=== PATIENT | male | born 1975 | race African-American/Black ===

== ENCOUNTER 2017-11-25 18:18 | Emergency (ER) | payer BC, OTHER ==
[2017-11-25 18:24] VITALS: BP 115/51; PULSE 67; TEMP 98.1; BMI 35.9
--- NOTE | 2017-11-25 18:39 | PDOC ---
History of Present Illness - General History Source: Patient Exam Limitations: No Limitations - History of Present Illness Initial Comments: 11/25/17 18:48 The patient is a 42 year old male with no significant PMH who presents to the emergency department with left third finger pain for 1 day. The patient reports that he started experiencing his left third finger pain last night after playing basketball last night. The patient reports that he vaguely remember jamming it. The patient reports that his left third finger pain noticeably worsened today compared to yesterday. The patient denies any numbness, tingling or weakness. He denies any other injury to his left third finger. He denies any chest pain, shortness of breath, headache and dizziness. He denies fever, chills , nausea, vomit, diarrhea and constipation. He denies any urinary symptoms . the patient denies any other complaints. <Nicholas Marie - Last Filed: 11/25/17 18:48> - History of Present Illness Initial Comments: Physical exam: Alert oriented no acute distress cooperative Afebrile vital signs normal Physical exam confined to the left hand. There is a deformity of the distal phalanx of the index finger, but the patient states that this is an old injury and was not aggravated by any recent trauma. He indicates pain over the third MCP J. There is no deformity, swelling, erythema, warmth, or other sign of injury to this joint. There is full range of motion. There is full flexion and extension of the PIP and DIP joints. Capillary refill intact. No sensory deficits. Impression: Minor sprain Plan: X-ray is negative. Splint ice rest and Motrin. Follow-up hand specialist if pain persists. Fully ambulatory and in no significant distress at discharge to follow-up as directed <Jose Juan Agarwal - Last Filed: 11/28/17 07:33> - General Chief Complaint: Pain, Acute Stated Complaint: left 3rd finger pain Time Seen by Provider: 11/25/17 18:19 Past History <Nicholas Marie - Last Filed: 11/25/17 18:48> - Past Medical History COPD: No DVT: No Other medical history: denies - Immunization History Td Vaccination: Yes (<5yrs ago) - Suicide/Smoking/Psychosocial Hx Smoking Status: No Smoking History: Current some day smoker Have you smoked in the past 12 months: Yes Number of Cigarettes Smoked Daily: 0 Information on smoking cessation initiated: Yes 'Breaking Loose' booklet given: 11/25/17 Hx Alcohol Use: Yes Drug/Substance Use Hx: No Substance Use Type: Alcohol <Jose Juan Agarwal - Last Filed: 11/28/17 07:33> - Past Medical History Allergies/Adverse Reactions: Allergies Allergy/AdvReac Type Severity Reaction Status Date / Time No Known Allergies Allergy Verified 11/25/17 18:19 Home Medications: Ambulatory Orders NK [No Known Home Medication] 11/25/17 Review of Systems - Review of Systems Able to Perform ROS?: Yes Comments:: 11/25/17 18:49 CONSTITUTIONAL: Absent: fever, chills, diaphoresis, generalized weakness, malaise, loss of appetite HEENT: Absent: rhinorrhea, nasal congestion, throat pain, throat swelling, difficulty swallowing, mouth swelling, ear pain, eye pain, visual Changes CARDIOVASCULAR: Absent: chest pain, syncope, palpitations, irregular heart rate, lightheadedness , peripheral edema RESPIRATORY: Absent: cough, shortness of breath, dyspnea with exertion, orthopnea, wheezing, stridor, hemoptysis GASTROINTESTINAL: Absent: abdominal pain, abdominal distension, nausea, vomiting, diarrhea, constipation, melena, hematochezia GENITOURINARY: Absent: dysuria, frequency, urgency, hesitancy, hematuria, flank pain, genital pain MUSCULOSKELETAL: (+)right third finger pain Absent: myalgia, arthralgia. SKIN: Absent: rash, itching, pallor HEMATOLOGIC/IMMUNOLOGIC: Absent: easy bleeding, easy bruising, lymphadenopathy, frequent infections ENDOCRINE: Absent: unexplained weight gain, unexplained weight loss, heat intolerance, cold intolerance NEUROLOGIC: Absent: headache, focal weakness or paresthesias, dizziness, unsteady gait, seizure, mental status changes, bladder or bowel incontinence PSYCHIATRIC: Absent: anxiety, depression, suicidal or homicidal ideation, hallucinations. <Nicholas Marie - Last Filed: 11/25/17 18:48> *Physical Exam - Vital Signs Last Vital Signs Temp Pulse Resp BP Pulse Ox 98.1 F 67 18 115/51 98 11/25/17 18:18 11/25/17 18:18 11/25/17 18:18 11/25/17 18:18 11/25/17 18:18 <Nicholas Marie - Last Filed: 11/25/17 18:48> - Vital Signs Last Vital Signs Temp Pulse Resp BP Pulse Ox 98.1 F 67 18 115/51 98 11/25/17 18:18 11/25/17 18:18 11/25/17 18:18 11/25/17 18:18 11/25/17 18:18 <Jose Juan Agarwal - Last Filed: 11/28/17 07:33> *DC/Admit/Observation/Transfer - Attestations Scribe Attestion: 11/25/17 18:49 Documentation prepared by Nicholas Marie, acting as medical insurance claims processor for Jose Juan Simpson MD. <Nicholas Marie - Last Filed: 11/25/17 18:48> - Discharge Dispostion Decision to Admit order: No <Jose Juan Agarwal - Last Filed: 11/28/17 07:33> Diagnosis at time of Disposition: Sprain, finger Qualifiers: Encounter type: initial encounter Finger: middle finger Sprain of finger site: metacarpophalangeal joint Laterality: left Qualified Code(s): S63.653A - Sprain of metacarpophalangeal joint of left middle finger, initial encounter - Discharge Dispostion Disposition: HOME Condition at time of disposition: Improved - Referrals Referrals: Cedric Gonzalez MD [Staff Physician] - 1 week - Patient Instructions Printed Discharge Instructions: DI for Finger Sprain Additional Instructions: Rest, ice, splint, and Advil 4 tablets or capsules 3 times daily. If pain or swelling persists, see hand specialist for further evaluation and treatment 5-7 days. - Post Discharge Activity Forms/Work/School Notes: Back to Work
== END 2017-11-25 19:09 | disposition home or self-care (01) ==
LOC: FER 18:18
PROC: 2W3KX1Z Immobilization of Left Finger using Splint (ICD-10-PCS; principal; 2017-11-25)
DX: S63.653A Sprain of metacarpophalangeal joint of left middle finger, initial encounter (principal); X58.XXXA Exposure to other specified factors, initial encounter; Y93.67 Activity, basketball; Y92.9 Unspecified place or not applicable
CPT/HCPCS: 73140-TC-LT-FY; 99281-25